=== PATIENT | female | born 1985 | race African-American/Black ===

== ENCOUNTER 2019-12-08 20:19 | Emergency (ER) | payer SELFPAY ==
[~2019-12-08] VITALS: Ht 157.5 cm; Wt 68.0 kg
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
[2019-12-08 20:56] LABS: BASO # 0.1 x10^3/uL (0.0-0.2); BASO % 1 % (0-3); EOS # 0.1 x10^3/uL (0.0-0.7); EOS % 1 % (0-3); HEMATOCRIT 39.8 % (36.0-47.0); HEMOGLOBIN 13.2 g/dL (12.0-15.5); LYMPH # 2.7 x10^3/uL (1.0-4.8); LYMPH % 28 % (24-48); MEAN CORPUSCULAR HEMOGLOBIN 29 pg (25-35); MEAN CORPUSCULAR HGB CONC 33 g/dL (31-37); MEAN CORPUSCULAR VOLUME 88 fL (79-100); MONO % 10 % (0-9); NEUT # 5.9 x10^3/uL (1.8-7.7); NEUT % 60 % (31-73); PLATELET COUNT 442 x10^3/uL (140-400); RED BLOOD COUNT 4.53 x10^6/uL (3.50-5.40); RED CELL DISTRIBUTION WIDTH 13.8 % (11.5-14.5); WHITE BLOOD COUNT 9.7 x10^3/uL (4.0-11.0)
[2019-12-08 20:58] LABS: BILIRUBIN,URINE SMALL (NEG); CLARITY,URINE CLEAR; NITRITE,URINE NEGATIVE (NEG); PROTEIN,URINE 30 mg/dL (NEG-TRACE)
[2019-12-08 21:02] LABS: COLOR,URINE DK YELLOW; SQUAMOUS EPITHELIAL CELL,UR MOD /LPF
[2019-12-08 21:03] LABS: CALCIUM 9.1 mg/dL (8.5-10.1); CREATININE 0.8 mg/dL (0.6-1.0); GFR 100.6; POTASSIUM 3.7 mmol/L (3.5-5.1)
[2019-12-08 21:04] LABS: BACTERIA,URINE MOD /HPF (0-FEW); BARBITURATES NEG (NEG); BENZODIAZEPINES NEG (NEG); CANNABINOIDS NEG (NEG); COCAINE NEG (NEG); METHADONE NEG (NEG); OPIATES NEG (NEG); PHENCYCLIDINE NEG (NEG); RBC,URINE 0 /HPF (0-2)
[2019-12-08 21:05] LABS: AMPHETAMINE/METHAMPHETAMINE NEG (NEG)
[2019-12-08 21:10] LABS: ALBUMIN 3.5 g/dL (3.4-5.0); MAGNESIUM 2.2 mg/dL (1.8-2.4); TOTAL BILIRUBIN 0.4 mg/dL (0.2-1.0); TOTAL PROTEIN 7.1 g/dL (6.4-8.2)
--- NOTE | 2019-12-08 21:47 | RAD ---
EXAM: CT HEAD WITHOUT CONTRAST. HISTORY: Altered mental status. TECHNIQUE: Computed tomography of the head was performed without intravenous contrast. One or more of the following individualized dose reduction techniques were utilized for this examination: 1. Automated exposure control. 2. Adjustment of the mA and/or kV according to patient size. 3. Use of iterative reconstruction technique. COMPARISON: None. FINDINGS: There is no intracranial hemorrhage. There is moderate hypoattenuation throughout the periventricular white matter. Prominence of the lateral ventricles and hemispheric sulci indicates mild atrophy. The visualized paranasal sinuses appear clear. The orbits are unremarkable. The temporal bones are unremarkable. The calvarium reveals no suspicious lesions. IMPRESSION: 1. No acute intracranial findings. 2. Moderate hypoattenuation throughout the periventricular white matter. Correlate for advanced demyelination or other white matter processes. Electronically signed by: Kalani Walker MD (12/08/2019 9:44 PM) [facility]
[2019-12-09 01:45] VITALS: BP 128/82
--- NOTE | 2019-12-09 11:47 | EKG ---
[facility] [address] [place] [address] Test Date: 2019-12-08 Test Time: 20:40:20 Pat Name: NITHYA BARNHART Department: Room: Gender: F [employer]: : 1985 Requested By: CANDACE LEHMAN Order Number: [id number] Reading MD: Measurements Intervals [place] Rate: 91 P: 62 WA: 130 QRS: 26 QRSD: 72 T: 31 QT: 360 QTc: 444 Interpretive Statements SINUS RHYTHM S1,S2,S3 PATTERN OTHERWISE NORMAL ECG RI6.02 No previous ECG available for comparison
== END 2019-12-09 01:48 | disposition short-term general hospital (02) ==
LOC: ER 20:19
DX: G47.00 Insomnia, unspecified (principal); R41.82 Altered mental status, unspecified; R51 Headache; I10 Essential (primary) hypertension; F43.12 Post-traumatic stress disorder, chronic; F90.9 Attention-deficit hyperactivity disorder, unspecified type
CPT/HCPCS: 36415; 70450; 80053; 80307; 81001; 81025; 83735; 85025; 93005; 99285; G0480